=== PATIENT | male | born 1970 | race Caucasian/White ===

== ENCOUNTER 2020-11-29 07:23 | Observation (INO) | payer OTHER ==
[~2020-11-29] VITALS: Ht 190.5 cm; Wt 153.6 kg
[2020-11-29 08:56] LABS: HEMOGLOBIN 13.8 gm/dl (14.0-17.5); RED BLOOD COUNT 4.65 M/UL (4.20-5.50); WHITE BLOOD COUNT 8.9 K/UL (4.5-11.0)
[2020-11-29 09:28] LABS: BUN/CREATININE RATIO 22 (0-10)
[2020-11-29] MEDS ORDERED: SYNTHROID150 MCG PO (15:29)
[2020-11-29] MEDS ORDERED: HYDROCHLOROTHIA25 MG PO (15:30)
[2020-11-29] MEDS ORDERED: VISTARIL 50 MG50 MG PO (15:30)
[2020-11-29] MEDS ORDERED: LISINOPRIL20 MG PO (15:31)
[2020-11-29] MEDS ORDERED: WELLBUTRIN SR200 MG PO (15:31)
[2020-11-29] MEDS ORDERED: ZYPREXA10 MG PO (15:31)
[2020-11-30 06:55] LABS: HEMOGLOBIN 12.3 gm/dl (14.0-17.5); RED BLOOD COUNT 4.2 M/UL (4.20-5.50); WHITE BLOOD COUNT 7.9 K/UL (4.5-11.0)
[2020-11-30 07:14] LABS: BUN/CREATININE RATIO 23 (0-10)
[2020-12-01 05:46] LABS: BUN/CREATININE RATIO 22 (0-10)
[2020-12-01] MEDS ORDERED: LANTUS INS100 UTS/M1 SC (10:23)
[2020-12-01] MEDS ORDERED: GLUCOPHAGE 500500 MG PO (10:23)
[2020-12-01] MEDS ORDERED: HUMALOG 10100 UNITS/ SC (10:23)
== END 2020-12-01 18:30 | disposition home or self-care (01) ==
LOC: ER1 07:23 → CDU 10:32 → MED SURG 4 10:32
PROVIDERS: Emergency Medicine; Physician Assistant; Physician Assistant Medical; ADMIT Internal Medicine
DX: E11.9 Type 2 diabetes mellitus without complications (principal); E87.1 Hypo-osmolality and hyponatremia; I10 Essential (primary) hypertension; E78.5 Hyperlipidemia, unspecified; E03.9 Hypothyroidism, unspecified; E66.01 Morbid (severe) obesity due to excess calories; Z68.41 Body mass index [BMI] 40.0-44.9, adult; Z86.19 Personal history of other infectious and parasitic diseases; Z20.822 Contact with and (suspected) exposure to COVID-19; Z79.899 Other long term (current) drug therapy; Z90.49 Acquired absence of other specified parts of digestive tract; Z80.9 Family history of malignant neoplasm, unspecified; Z83.3 Family history of diabetes mellitus; Z82.49 Family history of ischemic heart disease and other diseases of the circulatory system; Z23 Encounter for immunization
CPT/HCPCS: 36415; 36600; 71045; 80048; 80053; 82009; 82550; 82553; 82803; 82962; 83036; 83690; 83735; 83874; 84484; 85025; 85027; 90471; 96372; 96374; 96375; 99285; G0378; J7030; Q0177; U0002